=== PATIENT | female | born 1970 | race Caucasian/White ===

== ENCOUNTER 2020-11-24 06:05 | Day surgery (SDC) | payer BC ==
[2020-11-24] MEDS ORDERED: Lactated Ringers 1,000 ML IV SCH (06:30)
[2020-11-24] MEDS ORDERED: Versed 2 MG/2 ML Injection ONE (08:15)
[2020-11-24] MEDS ORDERED: Decadron 4 MG INJ ONE (08:15)
[2020-11-24] MEDS ORDERED: Zofran 4 MG/2 ML VIAL ONE (08:15)
[2020-11-24] MEDS ORDERED: TORAdol 30 mg Injection ONE (08:15)
[2020-11-24] MEDS ORDERED: SUBLIMAZE 100 MCG/2 ML ONE (08:15)
[2020-11-24] MEDS ORDERED: DIPRIVAN 200 MG/20 ML IV ONE (08:15)
[2020-11-24 10:00] VITALS: BP 126/74; PULSE 91; O2SAT 99
--- NOTE | 2020-11-25 12:20 | OP ---
SURGERY DATE: 11/24/2020 SURGERY TIME: 818 PREOPERATIVE DIAGNOSIS: 1. THICKENED ENDOMETRIUM. POSTOPERATIVE DIAGNOSIS: 1. THICKENED ENDOMETRIUM. PROCEDURE: 1. Hysteroscopy D&C. SURGEON: Dr. Michael Zavaleta. MOTORS AND CONTROLS TESTER: Carey Waldrop. ANESTHESIA: General. ESTIMATED BLOOD LOSS: Minimal. COMPLICATIONS: None. FINDINGS: The risks, benefits, indications, and alternatives of the procedure were reviewed with the patient prior to the procedure. Patient understood the risks of infection, bleeding, bowel injury, bladder injury, ureteral injury, uterine perforation, pelvic infection, thromboembolic disorder associated with this surgery. However, desires to have this procedure as a possible means to alleviate her current medical condition. DESCRIPTION OF PROCEDURE: At this point, the patient was taken to the OR, given general sedation, placed in the dorsal lithotomy position, prepped and draped in the usual sterile fashion. A weighted speculum was then placed in the patient's vagina and the anterior lip of the cervix was grasped with the single toothed tenaculum. Endocervical dilators were advanced through the endocervical canal as needed to dilate the cervix. A 5 mm hysteroscope was then placed in through the endocervical canal where visualization revealed no gross abnormalities in the uterine cavity. At this point, the hysteroscope was then removed and the curette was then placed in the fundus of the uterus and curettage was performed within all quadrants of the uterus retrieving a moderate amount of endometrial tissue. From this point, hemostasis was obtained. All instruments were then removed from the patient's vaginal region. The patient then taken out of the dorsal lithotomy position, was taken out of anesthesia, and was then taken to the recovery room in stable condition. All instruments and Laps were accounted for X 2.
== END 2020-11-24 09:59 | disposition home or self-care (01) ==
LOC: SDC 06:05
PROVIDERS: ATTEND Obstetrics & Gynecology
DX: R93.89 Abnormal findings on diagnostic imaging of other specified body structures (principal); Z79.899 Other long term (current) drug therapy
CPT/HCPCS: 58558; 84703; 88305; J1100; J1885; J2250; J2405; J2704; J3010

== ENCOUNTER 2021-11-09 06:07 | Day surgery (SDC) | payer BC ==
[2021-11-09] MEDS ORDERED: Xylocaine-Mpf 2% 5 Ml Vial IJ ONE (06:08)
[2021-11-09] MEDS ORDERED: DIPRIVAN 200 MG/20 ML IV ONE ×2 (06:08)
[2021-11-09] MEDS ORDERED: Lactated Ringers 1,000 ML IV ONE (06:08)
[2021-11-09] MEDS ORDERED: Lactated Ringers 1,000 ML IV SCH (06:30)
[2021-11-09 09:29] VITALS: O2SAT 100
[2021-11-09 09:32] VITALS: BP 103/68; PULSE 68
--- NOTE | 2021-11-09 09:43 | OP ---
SURGERY DATE/TIME: 11/09/2021 0800 PREOPERATIVE DIAGNOSIS: Screening exam. POSTOPERATIVE DIAGNOSIS: Normal colon. PROCEDURE: Colonoscopy. SURGEON: Dr. Pako Choudhury. ANESTHESIA: MAC. Medications given by anesthesia department. HISTORY: The patient is a 51-year-old white female presenting now for her first screening colonoscopy. The patient was appraised of the procedure risks of the procedure including the risk of perforation, phlebitis, untoward reaction to medication, bleeding and missed lesions. The patient verbalized her understanding and desired to have the procedure performed. DESCRIPTION OF PROCEDURE: The patient was given the medications by the anesthesia department. She had continuous pulse oximetry, ECG monitoring, intermittent blood pressure monitoring during the examination. She was placed in the left lateral decubitus position. A digital rectal examination was performed and revealed normal anal sphincter tone and no masses. The flexible Olympus pediatric colonoscope was used to intubate the rectum. A view of the colon was developed sequentially to the cecum. Upon insertion and withdrawal, including a retroflex view in the rectum, no mucosal lesions were encountered. The scope was removed from the patient who tolerated the procedure well and was sent back to OP recovery in good condition. The prep was noted to be good.
== END 2021-11-09 09:15 | disposition home or self-care (01) ==
LOC: SDC 06:07
PROVIDERS: ATTEND Family Medicine
DX: Z12.11 Encounter for screening for malignant neoplasm of colon (principal)
CPT/HCPCS: 36415; 84703; J2704